=== PATIENT | male | born 1990 | race Caucasian/White ===

== ENCOUNTER 2016-12-26 23:09 | Emergency (ER) | payer MEDICAID ==
[2016-12-27 00:23] LABS: BASOPHIL# 0.1 X10e3 (0-0.3); BASOPHIL% 0.4 % (0-2.5); EOSINOPHIL# 0.2 X10e3 (0-0.7); EOSINOPHIL% 0.9 % (0.0-7.0); HEMATOCRIT 46.7 % (38.0-50.0); HEMOGLOBIN 15.6 gm/dL (13.0-16.0); LYMPHOCYTE# 1.8 X10e3 (1.0-3.5); LYMPHOCYTE% 7.6 % (17.0-45.0); MEAN CELL VOLUME 87.1 FL (83-96); MEAN CORPUSCULAR HEMOGLOBIN 29.1 PG (28-34); MEAN CORPUSCULAR HGB CONC 33.5 g/dL (30-36); MONOCYTE# 1.6 X10e3 (0-1.0); MONOCYTE% 6.9 % (3.0-12.0); NEUTROPHIL# 19.9 X10e3 (1.5-7.1); NEUTROPHIL% 84.2 % (40-75); PLATELET COUNT 231 X10e3 (140-420); RED BLOOD COUNT 5.36 X10e (3.90-5.60); RED CELL DISTRIBUTION WIDTH 14.1 % (11.0-15.5); WHITE BLOOD COUNT 23.6 X10e3 (4.0-10.5)
[2016-12-27 00:24] LABS: DIFF IND YES
[2016-12-27 01:05] LABS: PLATELET ESTIMATE NORMAL (NORMAL)
[2016-12-27 02:00] LABS: ALBUMIN SERUM 4.7 g/dL (3.5-5.0); ALKALINE PHOSPHATASE 98 U/L (32-92); ALT (SGPT) 37 U/L (10-40); AST (SGOT) 40 U/L (10-42); BILIRUBIN, DIRECT 0.3 mg/dL (0.0-0.2); BILIRUBIN,INDIRECT 1.4 mg/dL (0.0-0.9); BILIRUBIN,TOTAL 1.7 mg/dL (0.2-2.0); BLOOD UREA NITROGEN 20 mg/dL (9-23); BUN/CREATININE RATIO 22.22; CALCIUM SERUM 8.7 mg/dL (8.4-10.2); CARBON DIOXIDE 21 mmol/L (22-31); CHLORIDE 105 mmol/L (100-111); CREATININE SERUM 0.9 mg/dL (0.6-1.4); GLOM FILT RATE Estimated 116.6 mL/min (>60); GLUCOSE FASTING 100 mg/dL (70-110); POTASSIUM 3.4 mmol/L (3.5-5.1); PROTEIN TOTAL SERUM 7.8 g/dL (6.0-8.3); SODIUM 137 mmol/L (135-145)
[2016-12-27 02:10] LABS: ALCOHOL BLOOD <5 mg/dL (0)
== END 2016-12-27 06:00 | disposition home or self-care (01) ==
LOC: CED 23:09
PROVIDERS: Student in an Organized Health Care Education/Training Program
DX: F15.159 Other stimulant abuse with stimulant-induced psychotic disorder, unspecified (principal); F15.129 Other stimulant abuse with intoxication, unspecified
CPT/HCPCS: 51701; 80048; 80076; 85025; 96360; 99284; G0480; J2060; J3486